=== PATIENT | female | born 1995 | race American Indian/Alaskan Native ===

== ENCOUNTER 2018-06-24 10:20 | Emergency (ER) | payer SELFPAY ==
[2018-06-24 10:40] VITALS: BP 131/76
[2018-06-24] MEDS ORDERED: ZOFRAN ODT PO ONE (12:41)
[2018-06-24 13:07] LABS: Hematocrit 44.8 % (30.3-42.9); Hemoglobin 14.9 gm/dl (10.1-14.3); Mean Corpuscular HGB Conc 33 % (30-34); Mean Corpuscular Volume 87 fl (79-97); Platelet Count 336 K/mm3 (140-440); Red Blood Count 5.14 M/mm3 (3.65-5.03); Red Cell Distribution Width 13.3 % (13.2-15.2)
[2018-06-24 13:23] LABS: Albumin 4.6 g/dL (3.9-5); BUN/Creatinine Ratio 22; Blood Urea Nitrogen 11 mg/dL (7-17); Calcium 9.4 mg/dL (8.4-10.2); Hemolysis Index 112
[2018-06-24 13:29] LABS: Bilirubin,Direct < 0.2 mg/dL (0-0.2)
[2018-06-24 13:30] LABS: Alanine Aminotransferase 12 units/L (7-56)
--- NOTE | 2018-06-24 13:30 | Emergency Department Report ---
HPI - General Chief Complaint: Abdominal Pain Time Seen by Provider: 06/24/18 12:33 - HPI HPI: 23-year-old female presents to the emergency department from home with complaint of upper abdominal pain, nausea, vomiting and diarrhea that started about 9 AM this morning. She took some Tylenol for her symptoms without any relief. She denies any fever, dysuria, vaginal bleeding or discharge. No recent travel or sick contacts at home. She does not have a primary care physician. ED Past Medical Hx - Past Medical History Previous Medical History?: No - Surgical History Past Surgical History?: No - Social History Smoking Status: Never Smoker Substance Use Type: None - Medications Home Medications: Home Medications Medication Instructions Recorded Confirmed Last Taken Type Dicyclomine [Bentyl] 10 mg PO QID PRN #20 capsule 06/24/18 Unknown Rx Ondansetron [Zofran Odt] 4 mg PO Q8HR PRN #10 tab.rapdis 06/24/18 Unknown Rx ED Review of Systems ROS: Stated complaint: ABD PAIN/VOMITING Other details as noted in HPI Comment: All other systems reviewed and negative Constitutional: denies: chills, fever Eyes: denies: eye pain, vision change ENT: denies: ear pain, throat pain Cardiovascular: denies: chest pain, edema Gastrointestinal: abdominal pain, nausea, vomiting, diarrhea Genitourinary: denies: dysuria, discharge Musculoskeletal: denies: back pain, arthralgia Skin: denies: rash, lesions Neurological: denies: headache, weakness Physical Exam - Physical Exam Vital Signs: Vital Signs 06/24/18 10:39 Temperature 98.5 F Pulse Rate 89 Respiratory 16 Rate Blood Pressure 131/76 O2 Sat by Pulse 99 Oximetry Physical Exam: GENERAL: The patient is well-developed well-nourished. HEENT: Normocephalic. Atraumatic. Patient has moist mucous membranes. EYES: Extraocular motions are intact. NECK: Supple. Trachea is midline. CHEST/LUNGS: Clear to auscultation. There is no respiratory distress noted. HEART/CARDIOVASCULAR: Regular. There is no tachycardia. There is no obvious murmur. ABDOMEN: Abdomen is soft. There is some tenderness to palpation to the upper abdomen. No guarding. Patient has normal bowel sounds. There is no abdominal distention. SKIN: Skin is warm and dry. NEURO: The patient is awake, alert, and oriented. The patient is cooperative. The patient has no focal neurologic deficits. The patient has normal speech. MUSCULOSKELETAL: There is no tenderness or deformity. There is no limitation range of motion. There is no evidence of acute injury. ED Course Vital Signs 06/24/18 10:39 Temperature 98.5 F Pulse Rate 89 Respiratory 16 Rate Blood Pressure 131/76 O2 Sat by Pulse 99 Oximetry ED Medical Decision Making - Lab Data Result diagrams: 06/24/18 12:50 06/24/18 12:50 - Radiology Data Radiology results: report reviewed ULTRASOUND ABDOMEN LIMITED: TECHNIQUE: Transabdominal ultrasound with color Doppler interrogation. HISTORY: Upper abdominal pain. COMPARISON: none. FINDINGS: LIVER: Normal. BILIARY SYSTEM: Normal. PANCREAS: Normal. RIGHT KIDNEY: Normal. PROXIMAL AORTA: Normal. ASCITES: None. IMPRESSION: Unremarkable exam. Transcribed By: TTR Dictated By: ELIECER FREY JR, MD Electronically Authenticated By: ELIECER FREY JR, MD Signed Date/Time: 06/24/18 3215 - Medical Decision Making This patient presents with some upper abdominal pain, nausea, vomiting and diarrhea that started earlier this morning. Vital signs stable, being afebrile. Labs have been mostly unremarkable except for some mild dehydration with 20 ketones in the urine. No urinary tract infection and the patient is not . An ultrasound was done to look into possible cholelithiasis and/or cholecystitis but it came back as an unremarkable examination. The patient was given some Zofran. She has had some fluid and/or passed an oral challenge. Vital signs stable including being afebrile. Patient will be discharged home to follow up with primary care. She is given a prescription for Zofran and some B entyl for abdominal discomfort. She will return to the ER with any worsening of her symptoms or any acute distress. - Differential Diagnosis food poisoning, , cholelithiasis, cholecystitis, gastritis Critical Care Time: No Critical care attestation.: If time is entered above; I have spent that time in minutes in the direct care of this critically ill patient, excluding procedure time. ED Disposition Clinical Impression: Viral syndrome Abdominal pain Qualifiers: Abdominal location: upper abdomen, unspecified Qualified Code(s): R10.10 - Upper abdominal pain, unspecified Nausea & vomiting Qualifiers: Vomiting type: unspecified Vomiting Intractability: non-intractable Qualified Code(s): R11.2 - Nausea with vomiting, unspecified Disposition: DC- TO HOME OR SELFCARE Is pt being admited?: No Condition: Stable Instructions: Dehydration (ED), Acute Nausea and Vomiting (ED), Abdominal Pain (ED) Additional Instructions: Increase your oral rehydration. Please follow up with a primary care physician in the next few days if possible. Return to the emergency Department with any worsening of your symptoms or any acute distress. Prescriptions: Dicyclomine [Bentyl] 10 mg PO QID PRN #20 capsule PRN Reason: Pain , Severe (7-10) Ondansetron [Zofran Odt] 4 mg PO Q8HR PRN #10 tab.rapdis PRN Reason: Nausea Referrals: ABBY STROUD MD [Primary Care Provider] - 3-5 Days [facility] [Outside] - 3-5 Days Time of Disposition: 15:34
[2018-06-24 13:32] LABS: Bilirubin,Urine NEG (Negative); Blood,Urine NEG (Negative); Color,Urine Yellow (Yellow); Mucus,Urine 2+ /HPF; Protein,Urine <15 mg/dL mg/dL (Negative)
[2018-06-24 13:33] LABS: HCG Qualitative,Urine Negative (Negative)
--- NOTE | 2018-06-24 14:48 | Ultrasound Report ---
ULTRASOUND ABDOMEN LIMITED: TECHNIQUE: Transabdominal ultrasound with color Doppler interrogation. HISTORY: Upper abdominal pain. COMPARISON: none. FINDINGS: LIVER: Normal. BILIARY SYSTEM: Normal. PANCREAS: Normal. RIGHT KIDNEY: Normal. PROXIMAL AORTA: Normal. ASCITES: None. IMPRESSION: Unremarkable exam.
[2018-06-24 15:20] LABS: Basophils % (Manual) 0 % (0.0-1.8); Eosinophils % (Manual) 0 % (0.0-4.3); Total Cells Counted 100
[2018-06-24 15:24] LABS: Anisocytosis 1+; Ovalocytes Rare; Poikilocytosis Few
== END 2018-06-24 15:39 | disposition home or self-care (01) ==
LOC: ED 10:20
DX: R10.10 Upper abdominal pain, unspecified (principal); R11.2 Nausea with vomiting, unspecified; R19.7 Diarrhea, unspecified; B34.9 Viral infection, unspecified
CPT/HCPCS: 36415; 76705; 80048; 80076; 81001; 81025; 83690; 84703; 85007; 85025; 99284; Q0162

== ENCOUNTER 2018-09-29 11:53 | Emergency (ER) | payer SELFPAY ==
--- NOTE | 2018-09-29 12:37 | Emergency Department Report ---
Chief Complaint: Nausea/Vomiting/Diarrhea Stated Complaint: NAUSEA Time Seen by Provider: 09/29/18 12:36 - HPI History of Present Illness: 15 DAYS LATE ON PERIOD SEXUALLY ACTIVE NO VAG BLEED OR DC CONCERNED PREG NO HOME PREG TEST RX NONE PMH NONE PSH NONE NKDA MSE screening note: Focused history and physical exam performed. Due to findings the following was ordered: ED Disposition for MSE Condition: Stable
[2018-09-29 12:39] VITALS: BP 157/99
[2018-09-29 13:33] LABS: Bacteria,Urine 1+ /HPF (Negative); Bilirubin,Urine NEG (Negative); Blood,Urine NEG (Negative); Color,Urine Straw (Yellow); Mucus,Urine FEW /HPF; Protein,Urine <15 mg/dL mg/dL (Negative); Urobilinogen,Urine < 2.0 mg/dL (<2.0)
[2018-09-29 13:36] LABS: HCG Qualitative,Urine Negative (Negative)
--- NOTE | 2018-09-29 13:45 | Emergency Department Report ---
Chief Complaint: Nausea/Vomiting/Diarrhea Stated Complaint: NAUSEA Time Seen by Provider: 09/29/18 12:36 - HPI History of Present Illness: This is a 23-year-old patient who presents to ED complaining of nausea and 10 days late on her menstrual cycle. Patient states she's been having symptoms of and seems to be . Patient states she is unsure why she is 10 days late. She denies abdominal pain, vaginal discharge, dysuria, chest pain, shortness of breath dizziness or headaches - ROS Review of Systems: As noted in HPI - Exam Vital Signs: Vital Signs 09/29/18 12:36 Temperature 98.2 F Pulse Rate 74 Respiratory 20 Rate Blood Pressure 157/99 O2 Sat by Pulse 100 Oximetry Physical Exam: GENERAL: Alert and oriented x3, no apparent distress, Normal Gait, atraumatic. ABDOMEN: No organomegaly was noted,Positive bowel sounds, soft, and non- distended. . Nontender to palpation on all Quadrants, NO CVA tenderness. SKIN: Warm and dry, No lesions, No ulceration or induration present. MSE screening note: Focused history and physical exam performed. Due to findings the following was ordered: ED Medical Decision Making - Medical Decision Making 21-year-old female presents with nausea and concerns for Discussed the patient denies she is not . Urinalysis and test negative. Discussed findings with the patient. Discussed the patient to follow-up with [facility] and medical. Vital signs are stable patient is in no acute distress ED Disposition for MSE Clinical Impression: Nausea, test negative Disposition: -01 TO HOME OR SELFCARE Is pt being admited?: No Does the pt Need Aspirin: No Condition: Stable Instructions: Acute Nausea and Vomiting (ED) Additional Instructions: Make sure to follow up with the primary care physician as discussed. Take all your medications as you've been prescribed. If you have any worsening symptoms or develop new symptoms please return to ED immediately. Prescriptions: Ondansetron [Zofran ODT TAB] 4 mg PO Q8HR PRN #10 tab.rapdis PRN Reason: Nausea Referrals: [facility] [Outside] - 3-5 Days Forms: Accompanied Note, Work/School Release Form(ED) Time of Disposition: 13:45
== END 2018-09-29 14:05 | disposition home or self-care (01) ==
LOC: ED 11:53
DX: R11.0 Nausea (principal); R42 Dizziness and giddiness
CPT/HCPCS: 81001; 81025

== ENCOUNTER 2021-09-22 17:38 | Emergency (ER) | payer BC ==
[2021-09-22 19:30] VITALS: BP 165/100
[2021-09-22 20:58] LABS: Basophils % (Auto) 0.7 % (0.0-1.8); Eosinophils # (Auto) 0.1 K/mm3 (0.0-0.4); Eosinophils % (Auto) 1.7 % (0.0-4.3); Hematocrit 41.3 % (30.3-42.9); Hemoglobin 13.5 gm/dl (10.1-14.3); Lymphocytes # (Auto) 2.3 K/mm3 (1.2-5.4); Lymphocytes % (Auto) 41.8 % (13.4-35.0); Mean Corpuscular HGB Conc 33 % (30-34); Mean Corpuscular Volume 84 fl (79-97); Monocytes # (Auto) 0.5 K/mm3 (0.0-0.8); Monocytes % (Auto) 8.9 % (0.0-7.3); Platelet Count 346 K/mm3 (140-440); Red Cell Distribution Width 13.6 % (13.2-15.2)
[2021-09-22 21:22] LABS: Alanine Aminotransferase 106 units/L (7-56); Albumin 4.6 g/dL (3.9-5); Blood Urea Nitrogen 8 mg/dL (7-17); Calcium 9.2 mg/dL (8.4-10.2); Hemolysis Index 2
[2021-09-22 21:36] LABS: BUN/Creatinine Ratio 11
== END 2021-09-22 21:00 | disposition left against medical advice (07) ==
LOC: ED 17:38
DX: R11.0 Nausea (principal); R53.83 Other fatigue; Z53.21 Procedure and treatment not carried out due to patient leaving prior to being seen by health care provider
CPT/HCPCS: 36415; 80053; 84702; 85025